=== PATIENT | female | born 1950 | race African-American/Black ===

== ENCOUNTER 2017-11-10 19:01 | Emergency (ER) | payer MEDICARE, MEDICAID ==
[~2017-11-10] VITALS: Ht 162.6 cm; Wt 88.0 kg
[~2017-11-10 19:01] MED LIST: ASPIRIN; CIMETIDINE; LEVOTHYROXINE; LOSARTAN; MAXZIDE
[2017-11-10] MEDS ORDERED: KETOROLAC 60MG/2ML VIAL IM ONE (20:45)
[2017-11-10 23:05] VITALS: BP 140/78
== END 2017-11-10 23:40 | disposition home or self-care (01) ==
LOC: ER 20:14
DX: M79.671 Pain in right foot (principal); I10 Essential (primary) hypertension; Z79.82 Long term (current) use of aspirin
CPT/HCPCS: 73630; 96372; 99284; J1885; 90471

== ENCOUNTER 2018-01-28 13:24 | Inpatient (IN) | payer MEDICARE, MEDICAID ==
[~2018-01-28] VITALS: Ht 5 cm; Wt 3.0 kg
[2018-01-28] MEDS ORDERED: FURO40TA5 PO (13:32)
[2018-01-28] MEDS ORDERED: SPIR25TA6 PO (13:32)
[2018-01-28] MEDS ORDERED: LOSA100T14 PO (13:32)
[2018-01-28] MEDS ORDERED: AMLO10TA80 PO (13:32)
[2018-01-28] MEDS ORDERED: OMEP20CA10 PO (13:32)
[2018-01-28] MEDS ORDERED: LEVO50TA8 PO (13:32)
[2018-01-28] MEDS ORDERED: DILTIAZEM HCL 5MG/ML 5ML VIAL IV ONE ×2 (14:00→17:30)
[2018-01-28] MEDS ORDERED: ASPIRIN 81MG TABLET PO ONE (14:00)
[2018-01-28] MEDS: NITROGLYCERIN 0.4MG TABLET SL SL PRN ×3 (14:08→14:50)
[2018-01-28 14:27] LABS: HEMATOCRIT. 36.3 % (36.0-48.0); HEMOGLOBIN. 12.1 g/dL (12.0-16.0); MEAN CORPUSCULAR VOLUME 78.2 fL (81.0-99.0); MEAN PLATELET VOLUME 10.1 fl (7.4-10.4); PLATELET 282 x1000/uL (130-400); RED BLOOD CELL COUNT 4.64 mill/uL (4.2-5.4); RED CELL DISTRIBUTION WIDTH 15.3 % (11.6-14.6)
[2018-01-28 14:37] LABS: D-DIMER 1.06 mg/L FEU (<0.50); PARTIAL THROMBOPLASTIN TIME 28.7 sec (23.4-31.0); PROTHROMBIN TIME 9.7 sec (9.1-11.1)
[2018-01-28 14:39] LABS: CHLORIDE 109 mEq/L (98-107)
[2018-01-28] MEDS ORDERED: MORPHINE SULFATE 4 MG/ML CPJ (NOT FOR IM USE) IV STA (14:59)
[2018-01-28] MEDS ORDERED: ONDANSETRON HCL 4MG/2ML INJ IV STA (14:59)
[2018-01-28] MEDS ORDERED: DILTIAZEM HCL 60MG TABLET PO ONE (15:00)
[2018-01-28 15:54] LABS: PLATELET ESTIMATE NORMAL
[2018-01-28] MEDS ORDERED: ENOXAPARIN 40MG/0.4ML SYR SUBCUT SCH (17:30)
[2018-01-28 18:28] LABS: T4 FREE 1.5 ng/dL (0.76-1.46)
[2018-01-28 19:10] VITALS: BP 120/57
[2018-01-28 20:00] VITALS: BP 131/62
[2018-01-28] MEDS ORDERED: ONDANSETRON HCL 4MG/2ML INJ IV PRN (20:00)
[2018-01-28] MEDS ORDERED: NITROGLYCERIN 0.4MG TABLET SL SL PRN (20:00)
[2018-01-28] MEDS ORDERED: GUAIFENESIN 200MG/10ML SUGAR FREE UDC PO PRN (20:00)
[2018-01-28] MEDS ORDERED: CLONIDINE 0.1MG TABLET PO PRN (20:00)
[2018-01-28] MEDS ORDERED: DOCUSATE SODIUM 100MG CAPSULE PO PRN (20:00)
[2018-01-28] MEDS ORDERED: TRAMADOL 50MG TABLET PO PRN (20:00)
[2018-01-28] MEDS ORDERED: LORAZEPAM 0.5MG TABLET PO PRN (20:00)
[2018-01-28] MEDS ORDERED: DIPHENHYDRAMINE 50MG/ML VIAL IV PRN (20:00)
[2018-01-28] MEDS ORDERED: NA PHOS,M-B/NA PHOS,DI-BA ENEMA 118ML PR PRN (20:00)
[2018-01-28] MEDS ORDERED: IPRATROPIUM/ALBUTEROL 0.5-3(2.5)MG/3ML NEB INH PRN (20:00)
[2018-01-28] MEDS ORDERED: ACETAMINOPHEN 325MG TABLET PO PRN (20:00)
[2018-01-28] MEDS ORDERED: MAGNESIUM/ALUMINUM HYDROXIDE/SIMETHICONE 30ML UDC PO PRN (20:00)
[2018-01-28] MEDS: MORPHINE SULFATE 4 MG/ML CPJ (NOT FOR IM USE) IV PRN (20:18)
[2018-01-28] MEDS: DILTIAZEM HCL 60MG TABLET PO SCH (20:53)
[2018-01-28] MEDS: FAMOTIDINE 20MG TABLET PO SCH (20:53)
[2018-01-28] MEDS: ASCORBIC ACID 500 MG TABLET PO SCH (20:54)
[2018-01-28] MEDS: ENOXAPARIN 100MG/ML SYR SUBCUT SCH (20:56)
[2018-01-28] MEDS ORDERED: FAMOTIDINE 20MG TABLET PO SCH (21:00)
[2018-01-29 00:27] VITALS: BP 106/33
[2018-01-29] MEDS: DILTIAZEM HCL 60MG TABLET PO SCH ×2 (01:28→08:47)
[2018-01-29 01:38] LABS: CREATINE KINASE MB FRACTION 1.7 ng/mL (0.5-3.6)
[2018-01-29 04:00] VITALS: BP 130/48
[2018-01-29 08:24] LABS: CREATINE KINASE MB FRACTION 1.4 ng/mL (0.5-3.6)
[2018-01-29] MEDS: FOLIC ACID/VITAMIN B COMP W-C TABLET PO SCH (08:46)
[2018-01-29] MEDS: ASCORBIC ACID 500 MG TABLET PO SCH ×2 (08:46→20:43)
[2018-01-29] MEDS: ASPIRIN 325MG EC TABLET PO SCH (08:46)
[2018-01-29 10:20] LABS: *AMPHETAMINES SCREEN URINE NEGATIVE (NEGATIVE); *BARBITURATES SCREEN URINE NEGATIVE (NEGATIVE)
[2018-01-29 10:21] LABS: *COCAINE SCREEN URINE NEGATIVE (NEGATIVE); METHADONE URINE SCREEN NEGATIVE (NEGATIVE); OPIATES URINE SCREEN PRESUMTIVE POSITIVE (NEGATIVE)
[2018-01-29 10:22] LABS: CANNABINOID URINE SCREEN NEGATIVE (NEGATIVE); PHENCYCLIDINE URINE SCREEN NEGATIVE (NEGATIVE)
[2018-01-29 10:30] LABS: *BENZODIAZEPINES SCREEN URINE NEGATIVE (NEGATIVE)
[2018-01-29 12:00] VITALS: BP 128/59
[2018-01-29] MEDS ORDERED: PNEUMOCOCCAL 23-VAL P-SAC VAC 0.5 ML IM ONE (12:00)
[2018-01-29] MEDS ORDERED: REGADENOSON 0.4 MG/5 ML IV ONE (13:15)
[2018-01-29] MEDS: DILTIAZEM HCL 120MG CAPSULE CD 24HR PO SCH (14:52)
[2018-01-29] MEDS ORDERED: DILTIAZEM HCL 180MG CAPSULE CD 24HR PO SCH (15:00)
[2018-01-29 16:00] VITALS: BP 131/47
[2018-01-29 17:30] LABS: BASOPHILS % 0.6 % (0.0-2.0); EOSINOPHILS % 3.3 % (0.0-5.0); HEMATOCRIT. 32.6 % (36.0-48.0); HEMOGLOBIN. 10.7 g/dL (12.0-16.0); LYMPHOCYTES % 26.1 % (20.0-50.0); MEAN CORPUSCULAR HEMOGLOBIN 25.9 pg (28.0-32.0); MEAN PLATELET VOLUME 9.9 fl (7.4-10.4); MONOCYTES % 11.1 % (2.0-8.0); NEUTROPHILS % 58.9 % (40.0-76.0); PLATELET 258 x1000/uL (130-400); RED BLOOD CELL COUNT 4.13 mill/uL (4.2-5.4); RED CELL DISTRIBUTION WIDTH 15.5 % (11.6-14.6)
[2018-01-29 18:05] LABS: CHLORIDE 108 mEq/L (98-107)
[2018-01-29 20:00] VITALS: BP 130/54
[2018-01-29] MEDS: ZOLPIDEM TARTRATE 5MG TABLET PO PRN (20:43)
[2018-01-29] MEDS: ATORVASTATIN CALCIUM 20MG TABLET PO SCH (20:43)
[2018-01-29] MEDS: FAMOTIDINE 20MG TABLET PO SCH (20:46)
[2018-01-29] MEDS: ENOXAPARIN 100MG/ML SYR SUBCUT SCH (20:47)
[2018-01-30] VITALS: BP 130/54
[2018-01-30] MEDS: MORPHINE SULFATE 4 MG/ML CPJ (NOT FOR IM USE) IV PRN (00:02)
[2018-01-30 04:00] VITALS: BP 130/54
[2018-01-30] MEDS: DILTIAZEM HCL 120MG CAPSULE CD 24HR PO SCH ×2 (05:50→18:36)
[2018-01-30 07:25] LABS: BASOPHILS % 0.6 % (0.0-2.0); EOSINOPHILS % 4.2 % (0.0-5.0); HEMOGLOBIN. 10.6 g/dL (12.0-16.0); MEAN CORPUSCULAR HEMOGLOBIN 26.1 pg (28.0-32.0); MEAN CORPUSCULAR VOLUME 78.6 fL (81.0-99.0); MEAN PLATELET VOLUME 10.3 fl (7.4-10.4); NEUTROPHILS % 55.2 % (40.0-76.0); PLATELET 256 x1000/uL (130-400); RED BLOOD CELL COUNT 4.08 mill/uL (4.2-5.4)
[2018-01-30 07:30] LABS: CHLORIDE 110 mEq/L (98-107)
[2018-01-30] MEDS ORDERED: REGADENOSON 0.4 MG/5 ML IV ONE (09:30)
[2018-01-30 12:00] VITALS: BP 135/50
[2018-01-30] MEDS: ASCORBIC ACID 500 MG TABLET PO SCH ×2 (12:51→21:05)
[2018-01-30] MEDS: FOLIC ACID/VITAMIN B COMP W-C TABLET PO SCH (12:52)
[2018-01-30] MEDS: ASPIRIN 325MG EC TABLET PO SCH (12:52)
[2018-01-30 16:00] VITALS: BP 146/60
[2018-01-30 20:00] VITALS: BP 138/65
[2018-01-30 21:00] VITALS: BP 134/48
[2018-01-30] MEDS: ENOXAPARIN 100MG/ML SYR SUBCUT SCH (21:04)
[2018-01-30] MEDS: ZOLPIDEM TARTRATE 5MG TABLET PO PRN (21:05)
[2018-01-30] MEDS: ATORVASTATIN CALCIUM 20MG TABLET PO SCH (21:05)
[2018-01-30] MEDS: FAMOTIDINE 20MG TABLET PO SCH (21:08)
[2018-01-31] VITALS: BP 135/58
[2018-01-31 04:00] VITALS: BP 130/52
[2018-01-31] MEDS: DILTIAZEM HCL 120MG CAPSULE CD 24HR PO SCH (05:07)
[2018-01-31 06:00] VITALS: BP 146/59
[2018-01-31 08:00] VITALS: BP 146/62
[2018-01-31] MEDS: ASPIRIN 325MG EC TABLET PO SCH (09:11)
[2018-01-31] MEDS: ASCORBIC ACID 500 MG TABLET PO SCH (09:11)
[2018-01-31] MEDS: FOLIC ACID/VITAMIN B COMP W-C TABLET PO SCH (09:11)
[2018-01-31 12:00] VITALS: BP 158/51
[2018-01-31 12:30] VITALS: BP 146/59
== END 2018-01-31 12:55 | disposition home health service (06) | DRG 308 ==
LOC: ER 13:24 → ENRESERV 17:13 → SUPCPDRO 17:20 → 7WST 18:09
PROVIDERS: ADMIT Internal Medicine; ATTEND Internal Medicine
DX: I48.91 Unspecified atrial fibrillation (principal); N17.0 Acute kidney failure with tubular necrosis; E44.1 Mild protein-calorie malnutrition; I13.0 Hypertensive heart and chronic kidney disease with heart failure and stage 1 through stage 4 chronic kidney disease, or unspecified chronic kidney disease; Z68.45 Body mass index [BMI] 70 or greater, adult; E66.9 Obesity, unspecified; K21.9 Gastro-esophageal reflux disease without esophagitis; I50.9 Heart failure, unspecified; E03.9 Hypothyroidism, unspecified; E78.00 Pure hypercholesterolemia, unspecified; N18.9 Chronic kidney disease, unspecified; D72.829 Elevated white blood cell count, unspecified; E05.90 Thyrotoxicosis, unspecified without thyrotoxic crisis or storm; R07.89 Other chest pain; Z79.899 Other long term (current) drug therapy; Z82.49 Family history of ischemic heart disease and other diseases of the circulatory system; Z79.82 Long term (current) use of aspirin
CPT/HCPCS: 36415; 71045; 76770; 78452; 78582; 80053; 80061; 80305; 82550; 82553; 83036; 83735; 83880; 84439; 84443; 84481; 84484; 85025; 85379; 85610; 85730; 90732; 93005; 93017; 93306; 93970; 96374; 97162; 99291; A9500; A9558; J1650; J2270; J2405; J2785; J3490

== ENCOUNTER 2018-08-18 00:11 | Inpatient (IN) | payer MEDICARE, MEDICAID ==
[~2018-08-18] VITALS: Ht 162.6 cm; Wt 95.9 kg
[~2018-08-18 00:11] MED LIST changes: +AMLO10TA80 PO; -ASPIRIN; -CIMETIDINE; +FURO40TA5 PO; -LEVOTHYROXINE; +LOSA100T32 PO; -LOSARTAN; -MAXZIDE; +OMEP20CA5 PO; +SPIR25TA6 PO
[2018-08-18] MEDS ORDERED: ONDANSETRON HCL 4MG/2ML INJ IV STA (01:07)
[2018-08-18] MEDS ORDERED: SODIUM CHLORIDE 0.9% 1,000 ML IV ONE (01:07)
[2018-08-18] MEDS ORDERED: ASPIRIN 325MG TABLET PO ONE (01:15)
[2018-08-18 01:20] LABS: BASOPHILS % 1.2 % (0.0-2.0); EOSINOPHILS % 0.4 % (0.0-5.0); HEMOGLOBIN. 12.2 g/dL (12.0-16.0); LYMPHOCYTES % 18.3 % (20.0-50.0); MEAN CORPUSCULAR HEMOGLOBIN 25.6 pg (28.0-32.0); MEAN CORPUSCULAR VOLUME 77.3 fL (81.0-99.0); MONOCYTES % 7.4 % (2.0-8.0); NEUTROPHILS % 72.7 % (40.0-76.0); PLATELET 252 x1000/uL (130-400); RED BLOOD CELL COUNT 4.78 mill/uL (4.2-5.4); RED CELL DISTRIBUTION WIDTH 15.2 % (11.6-14.6)
[2018-08-18 01:26] LABS: CHLORIDE 108 mEq/L (98-107)
[2018-08-18] MEDS ORDERED: ASPIRIN 81MG TABLET PO NR (01:45)
[2018-08-18 08:46] LABS: T4 FREE 1.15 ng/dL (0.76-1.46)
[2018-08-18] MEDS ORDERED: CLONIDINE 0.1MG TABLET PO PRN (09:00)
[2018-08-18] MEDS ORDERED: GUAIFENESIN 200MG/10ML SUGAR FREE UDC PO PRN (09:00)
[2018-08-18] MEDS ORDERED: IPRATROPIUM/ALBUTEROL 0.5-3(2.5)MG/3ML NEB INH PRN (09:00)
[2018-08-18] MEDS ORDERED: ACETAMINOPHEN 650MG SUPP PR PRN (09:00)
[2018-08-18] MEDS ORDERED: NA PHOS,M-B/NA PHOS,DI-BA ENEMA 118ML PR PRN (09:00)
[2018-08-18] MEDS ORDERED: ACETAMINOPHEN 650MG/20.3ML UDC GT PRN (09:00)
[2018-08-18] MEDS ORDERED: DIPHENHYDRAMINE 50MG/ML VIAL IV PRN (09:00)
[2018-08-18] MEDS ORDERED: HYDROCODONE/ACETAMINOPHEN 5/325MG TABLET PO PRN (09:00)
[2018-08-18] MEDS ORDERED: DOCUSATE SODIUM 100MG CAPSULE PO PRN (09:00)
[2018-08-18] MEDS ORDERED: ACETAMINOPHEN 325MG TABLET PO PRN (09:00)
[2018-08-18] MEDS ORDERED: ONDANSETRON HCL 4MG/2ML INJ IV PRN (09:00)
[2018-08-18 09:15] VITALS: BP 153/84
[2018-08-18 09:20] VITALS: BP 158/54
[2018-08-18] MEDS ORDERED: REGADENOSON 0.4 MG/5 ML IV SCH (11:45)
[2018-08-18 12:00] VITALS: BP 142/45
[2018-08-18] MEDS: APIXABAN 5 MG TABLET PO SCH ×2 (14:27→21:01)
[2018-08-18] MEDS: SODIUM CHLORIDE 0.9% INJ 3ML FLUSH IVF SCH ×2 (14:27→21:02)
[2018-08-18 15:54] LABS: CREATINE KINASE 58 IU/L (26-192)
[2018-08-18 15:55] LABS: CREATINE KINASE MB FRACTION < 1.0 ng/mL (0.5-3.6)
[2018-08-18 16:00] VITALS: BP 144/88
[2018-08-18 16:26] LABS: CLARITY URINE CLEAR (CLEAR); COLOR URINE YELLOW (YELLOW); KETONES URINE NEGATIVE (NEGATIVE); LEUKOCYTE ESTERASE URINE NEGATIVE (NEGATIVE); NITRITE URINE NEGATIVE (NEGATIVE); OCCULT BLOOD URINE NEGATIVE (NEGATIVE); PROTEIN URINE NEGATIVE (NEGATIVE); SPECIFIC GRAVITY URINE 1.012 (1.005-1.030); UROBILINOGEN URINE 0.2 E.U./dL (0.2-1.0)
[2018-08-18 16:36] LABS: *BARBITURATES SCREEN URINE NEGATIVE (NEGATIVE); *BENZODIAZEPINES SCREEN URINE NEGATIVE (NEGATIVE); *COCAINE SCREEN URINE NEGATIVE (NEGATIVE)
[2018-08-18 16:37] LABS: *AMPHETAMINES SCREEN URINE NEGATIVE (NEGATIVE); CANNABINOID URINE SCREEN NEGATIVE (NEGATIVE); METHADONE URINE SCREEN NEGATIVE (NEGATIVE); OPIATES URINE SCREEN NEGATIVE (NEGATIVE); PHENCYCLIDINE URINE SCREEN NEGATIVE (NEGATIVE)
[2018-08-18] MEDS ORDERED: APIXABAN 2.5 MG TABLET PO SCH (17:00)
[2018-08-18] MEDS: OMEPRAZOLE 20MG CAPSULE EXTENDED RELEASE PO SCH (18:29)
[2018-08-18] MEDS: AMLODIPINE 10MG TABLET PO SCH (18:30)
[2018-08-18] MEDS: SODIUM CHLORIDE 0.9% 1,000 ML IV SCH (18:30)
[2018-08-18 20:00] VITALS: BP 151/47
[2018-08-18] MEDS ORDERED: MEDICATION NOT ON FORMULARY EA (Losartan Potassium 100 MG) PO SCH (21:00)
[2018-08-18] MEDS: MAGNESIUM/ALUMINUM HYDROXIDE/SIMETHICONE 30ML UDC PO PRN (21:02)
[2018-08-18] MEDS: FUROSEMIDE 40MG TABLET PO SCH (21:02)
[2018-08-18] MEDS: LOSARTAN POTASSIUM 100 MG TABLET PO SCH (21:02)
[2018-08-18 23:54] LABS: CREATINE KINASE MB FRACTION 1.1 ng/mL (0.5-3.6)
[2018-08-19 00:45] VITALS: BP 138/43
[2018-08-19 04:00] VITALS: BP 131/44
[2018-08-19] MEDS: SODIUM CHLORIDE 0.9% INJ 3ML FLUSH IVF SCH ×3 (06:21→20:52)
[2018-08-19] MEDS: SODIUM CHLORIDE 0.9% 1,000 ML IV SCH ×2 (06:49→20:57)
[2018-08-19 07:19] LABS: BASOPHILS % 1.2 % (0.0-2.0); EOSINOPHILS % 3.2 % (0.0-5.0); HEMATOCRIT. 31.2 % (36.0-48.0); HEMOGLOBIN. 10.2 g/dL (12.0-16.0); LYMPHOCYTES % 23.8 % (20.0-50.0); MEAN CORPUSCULAR HEMOGLOBIN 25.7 pg (28.0-32.0); MEAN CORPUSCULAR VOLUME 78.4 fL (81.0-99.0); MEAN PLATELET VOLUME 10.6 fl (7.4-10.4); NEUTROPHILS % 63.8 % (40.0-76.0); PLATELET 214 x1000/uL (130-400); RED BLOOD CELL COUNT 3.97 mill/uL (4.2-5.4); RED CELL DISTRIBUTION WIDTH 15.1 % (11.6-14.6)
[2018-08-19 07:41] LABS: CHLORIDE 114 mEq/L (98-107)
[2018-08-19 07:55] LABS: LDL CHOLESTEROL 84 mg/dL (5-100)
[2018-08-19 07:57] LABS: CREATINE KINASE 61 IU/L (26-192); HDL CHOLESTEROL 64 mg/dL (40-59)
[2018-08-19 07:59] LABS: CREATINE KINASE MB FRACTION 1.2 ng/mL (0.5-3.6)
[2018-08-19 08:00] VITALS: BP 150/48
[2018-08-19] MEDS: OMEPRAZOLE 20MG CAPSULE EXTENDED RELEASE PO SCH (08:47)
[2018-08-19] MEDS: FUROSEMIDE 40MG TABLET PO SCH ×2 (08:47→20:51)
[2018-08-19] MEDS: APIXABAN 5 MG TABLET PO SCH ×2 (08:47→20:51)
[2018-08-19] MEDS: AMLODIPINE 10MG TABLET PO SCH (08:48)
[2018-08-19] MEDS: SPIRONOLACTONE 25MG TABLET PO SCH (08:48)
[2018-08-19] MEDS ORDERED: MEDICATION NOT ON FORMULARY EA (Spironolactone 25 MG) PO SCH (09:00)
[2018-08-19] MEDS ORDERED: MEDICATION NOT ON FORMULARY EA (Furosemide 40 MG) PO SCH (09:00)
[2018-08-19 12:00] VITALS: BP 118/38
[2018-08-19 16:00] VITALS: BP 132/46
[2018-08-19 20:00] VITALS: BP 140/42
[2018-08-19] MEDS: LOSARTAN POTASSIUM 100 MG TABLET PO SCH (20:51)
[2018-08-19] MEDS: MAGNESIUM/ALUMINUM HYDROXIDE/SIMETHICONE 30ML UDC PO PRN (20:51)
[2018-08-20] VITALS: BP 140/52
[2018-08-20 04:00] VITALS: BP 101/56
[2018-08-20] MEDS: SODIUM CHLORIDE 0.9% INJ 3ML FLUSH IVF SCH ×2 (05:44→14:00)
[2018-08-20 07:42] VITALS: BP 151/51
[2018-08-20] MEDS: FUROSEMIDE 40MG TABLET PO SCH (08:45)
[2018-08-20] MEDS: OMEPRAZOLE 20MG CAPSULE EXTENDED RELEASE PO SCH (08:45)
[2018-08-20] MEDS: AMLODIPINE 10MG TABLET PO SCH (08:45)
[2018-08-20] MEDS: APIXABAN 5 MG TABLET PO SCH (08:45)
[2018-08-20] MEDS: SPIRONOLACTONE 25MG TABLET PO SCH (08:45)
[2018-08-20] MEDS: SODIUM CHLORIDE 0.9% 1,000 ML IV SCH (08:48)
[2018-08-20] MEDS ORDERED: REGADENOSON 0.4 MG/5 ML IV ONE (10:35)
[2018-08-20 11:56] VITALS: BP 155/50
[2018-08-20 13:23] LABS: BASOPHILS % 1.5 % (0.0-2.0); HEMATOCRIT. 33.6 % (36.0-48.0); HEMOGLOBIN. 11.1 g/dL (12.0-16.0); LYMPHOCYTES % 8.9 % (20.0-50.0); MEAN CORPUSCULAR HEMOGLOBIN 25.8 pg (28.0-32.0); MEAN CORPUSCULAR VOLUME 78.4 fL (81.0-99.0); MEAN PLATELET VOLUME 10.3 fl (7.4-10.4); MONOCYTES % 7.9 % (2.0-8.0); NEUTROPHILS % 79.7 % (40.0-76.0); PLATELET 215 x1000/uL (130-400); RED BLOOD CELL COUNT 4.28 mill/uL (4.2-5.4); RED CELL DISTRIBUTION WIDTH 14.9 % (11.6-14.6)
[2018-08-20 13:30] LABS: CHLORIDE 115 mEq/L (98-107)
[2018-08-20 15:10] VITALS: BP 150/51
[2018-08-20] MEDS ORDERED: APIX5TAB PO (15:15)
[2018-08-20] MEDS ORDERED: DIGO125T82 MT (15:39)
[2018-08-20] MEDS ORDERED: DILT120C94 PO (15:54)
[2018-08-20] MEDS ORDERED: DILT120C94 MT (19:32)
[2018-08-20 19:57] VITALS: BP 149/49
== END 2018-08-20 21:45 | disposition home or self-care (01) | DRG 308 ==
LOC: ER 00:11 → 6WST 03:07 → EDBEDREQTM 03:34 → EDBEDREQ 03:34 → ENRESERV 07:16
PROVIDERS: ADMIT Family Medicine; ATTEND Family Medicine
DX: I48.91 Unspecified atrial fibrillation (principal); N17.0 Acute kidney failure with tubular necrosis; E44.1 Mild protein-calorie malnutrition; N18.4 Chronic kidney disease, stage 4 (severe); E11.22 Type 2 diabetes mellitus with diabetic chronic kidney disease; E78.5 Hyperlipidemia, unspecified; E03.9 Hypothyroidism, unspecified; I12.9 Hypertensive chronic kidney disease with stage 1 through stage 4 chronic kidney disease, or unspecified chronic kidney disease; K21.9 Gastro-esophageal reflux disease without esophagitis; Z79.01 Long term (current) use of anticoagulants; Z82.49 Family history of ischemic heart disease and other diseases of the circulatory system; Z79.899 Other long term (current) drug therapy; Z79.82 Long term (current) use of aspirin; Z68.36 Body mass index [BMI] 36.0-36.9, adult
CPT/HCPCS: 36415; 71045; 76770; 78452; 80061; 80305; 82550; 82553; 83036; 83880; 84439; 84443; 84484; 85379; 93005; 93017; 93308; 93970; 96361; 96374; 99285; A9500; J2405; J2785; J7030

== ENCOUNTER 2023-02-27 08:17 | Emergency (ER) | payer OTHER, MEDICAID ==
[~2023-02-27] VITALS: Ht 165.1 cm; Wt 80.0 kg
[~2023-02-27 08:17] MED LIST changes: +APIX5TAB PO; +DIGO125T80 MT; -LOSA100T32 PO; +LOSA100T33 PO; +OMEP20CA14 PO; -OMEP20CA5 PO
[2023-02-27] MEDS ORDERED: LABETALOL (08:21)
[2023-02-27] MEDS ORDERED: LIPITOR (08:21)
[2023-02-27 08:22] VITALS: TEMP 98.2; O2SAT 100
[2023-02-27 09:04] LABS: BASOPHILS % 1.2 % (0.0-2.0); EOSINOPHILS % 3.1 % (0.0-5.0); HEMATOCRIT. 32.8 % (36.0-48.0); HEMOGLOBIN. 10.5 g/dL (12.0-16.0); LYMPHOCYTES % 19.6 % (20.0-50.0); MEAN CORPUSCULAR HEMOGLOBIN 26.3 pg (28.0-32.0); MEAN CORPUSCULAR VOLUME 82.2 fL (81.0-99.0); MEAN PLATELET VOLUME 10.5 fl (7.4-10.4); MONOCYTES % 7.9 % (2.0-8.0); NEUTROPHILS % 68.2 % (40.0-76.0); PLATELET 187 x1000/uL (130-400); RED BLOOD CELL COUNT 3.99 mill/uL (4.2-5.4); WHITE BLOOD COUNT 9.2 x1000/uL (4.5-11.0)
[2023-02-27 09:21] LABS: CHLORIDE 108 mEq/L (98-107); INDEX HEMOLYSI 1 (1-3); INDEX ICTERIC 1 (1-4); INDEX LIPEMIC 1 (1-3); POTASSIUM 4.5 mEq/L (3.5-5.1); SODIUM 140 mEq/L (136-145)
[2023-02-27 09:48] LABS: ALANINE AMINOTRANSFERASE 15 IU/L (13-61); ALBUMIN 3.6 g/dL (3.4-5.0); ASPARTATE AMINOTRANSFERASE 18 IU/L (15-37); BILIRUBIN TOTAL 0.7 mg/dL (0.1-1.0); CALCIUM 8.4 mg/dL (8.5-10.1); CARBON DIOXIDE 23 mEq/L (21-32); GLUCOSE 111 mg/dL (70-105); TROPONIN I HIGH SENSITIVITY 31 ng/L (<54); UREA NITROGEN BLOOD 45 mg/dL (7-21)
[2023-02-27 09:52] LABS: CREATININE 6.8 mg/dL (0.6-1.3)
[2023-02-27] MEDS ORDERED: FUROSEMIDE 40MG/4ML VIAL IVP ONE (10:00)
[2023-02-27] MEDS ORDERED: ENALAPRIL 2.5MG/2ML VIAL 2ML IV ONE (10:00)
[2023-02-27] MEDS ORDERED: FUROSEMIDE 40MG/4ML VIAL IVP NR (10:15)
[2023-02-27] MEDS ORDERED: ENALAPRIL 1.25MG/ML VIAL 1ML IV NR (10:15)
[2023-02-27 11:46] LABS: NT PRO B-TYPE NATRIURETIC PEP 12817 pg/mL (5-125)
[2023-02-27 12:23] LABS: HEPATITIS B SURFACE ANTIGEN NEGATIVE
[2023-02-27 12:35] VITALS: BP 154/56; PULSE 87; RESP 26
[2023-02-27 12:50] LABS: HEPATITIS C VIR.AB 0.08 INDEXVAL (0.00-0.80)
[2023-02-27 12:51] LABS: HEPATITIS B CORE AB IGM NEGATIVE
[2023-02-27 12:53] LABS: HEPATITIS A AB IGM NEGATIVE (NEGATIVE)
== END 2023-02-27 12:37 | disposition short-term general hospital (02) ==
LOC: ER 08:17
DX: E87.70 Fluid overload, unspecified (principal); I12.0 Hypertensive chronic kidney disease with stage 5 chronic kidney disease or end stage renal disease; N18.6 End stage renal disease; I10 Essential (primary) hypertension; Z98.890 Other specified postprocedural states
CPT/HCPCS: 99285; 96374; 71045; 96375; 80053; 83880; 85025; 87340; 86803; 84484; 36415; 86705; 86709; 93005; J3490; J1940

== ENCOUNTER 2024-09-02 03:24 | Inpatient (IN) | payer OTHER, MEDICAID, MEDICARE ==
[2024-09-02] VITALS (73 sets, daily range): BP systolic 80–152; BP diastolic 44–112; PULSE 58–148; RESP 11–31; TEMP 36.1–36.6696; O2SAT 96–100
[~2024-09-02] VITALS: Ht 165.1 cm; Wt 68.9 kg
[2024-09-02] MEDS: HEPARIN 25,000 UNITS PREMIX 250 ML IV SCH (03:16)
[~2024-09-02 03:24] MED LIST changes: +LABETALOL; +LIPITOR
[2024-09-02] MEDS: PROPOFOL 10MG/ML 100ML 100 ML IV ONE (04:27)
[2024-09-02 04:30] LABS: BG BASE EXCESS -5.3 mmol/L (-2.0-3.0); BG CARBOXYHEMOGLOBIN 1.2 % (0.5-1.5); BG DEOXYHEMOGLOBIN 0.7 % (0.0-5.0); BG FRACTION INSPIRED OXYGEN 100; BG HCO3 ACT 21.7 mmol/L (21.0-28.0); BG METHEMOGLOBIN 0.3 % (0.5-1.5); BG OXYGEN SATURATION 99.3 % (94.0-98.0); BG OXYHEMOGLOBIN 97.8 % (94.0-98.0); BG PCO2 48.7 mmHg (32.0-45.0); BG PH 7.266 (7.350-7.450); BG PO2 296.8 mmHg (83.0-108.0); BG SAMPLE SITE RIGHT RADIAL; BG TOTAL HEMOGLOBIN 10.3 g/dL (12.0-16.0); BG VENT MODE VENT - AC
[2024-09-02] MEDS: INSULIN REGULAR (HUMULIN R) 1000UNITS/10ML VIAL IV ONE (05:04)
[2024-09-02] MEDS: METOPROLOL TARTRATE 5MG/5ML VIAL IV ONE (05:11)
[2024-09-02] MEDS: METOPROLOL TARTRATE 5MG/5ML VIAL IV NR (05:47)
[2024-09-02 05:52] LABS: BASOPHILS % 0.6 % (0.0-2.0); EOSINOPHILS % 0.9 % (0.0-5.0); HEMATOCRIT. 32.4 % (36.0-48.0); HEMOGLOBIN. 10.6 g/dL (12.0-16.0); LYMPHOCYTES % 8.3 % (20.0-50.0); MEAN CORPUSCULAR HEMOGLOBIN 27.9 pg (28.0-32.0); MEAN CORPUSCULAR HGB CONC 32.7 g/dL (31.0-37.0); MEAN CORPUSCULAR VOLUME 85.5 fL (81.0-99.0); MONOCYTES % 2.2 % (2.0-8.0); PLATELET 253 x1000/uL (130-400); RED BLOOD CELL COUNT 3.79 mill/uL (4.2-5.4); WHITE BLOOD COUNT 19.1 x1000/uL (4.5-11.0)
[2024-09-02] MEDS: DILTIAZEM HCL 5MG/ML 5ML VIAL IV ONE (05:57)
[2024-09-02 06:01] LABS: INR 1.1; PARTIAL THROMBOPLASTIN TIME 28.8 sec (23.4-31.0); PROTHROMBIN TIME 11.9 sec (9.6-11.0)
[2024-09-02 06:06] LABS: CHLORIDE 101 mEq/L (98-107); SODIUM 141 mEq/L (136-145)
[2024-09-02 06:07] LABS: CALCIUM 10.9 mg/dL (8.7-10.4); CARBON DIOXIDE 28 mEq/L (21-32)
[2024-09-02] MEDS: PIPERACILLIN/TAZO 3.375G/50ML 50 ML IV NR (06:08)
[2024-09-02 06:12] LABS: GLUCOSE 194 mg/dL (70-105); UREA NITROGEN BLOOD 51 mg/dL (9-23)
[2024-09-02 06:13] LABS: ETHANOL BLOOD < 10 mg/dL (<10)
[2024-09-02 06:14] LABS: PHOSPHORUS 5.1 mg/dL (2.5-4.9)
[2024-09-02 06:58] LABS: CREATININE 7.4 mg/dL (0.6-1.0); TROPONIN I HIGH SENSITIVITY 190 ng/L (3.0-34)
[2024-09-02] MEDS: VANCOMYCIN 1G PREMIX 200 ML IV NR (07:25)
[2024-09-02 07:32] LABS: LACTIC ACID 2.8 mmol/L (0.4-2.0)
[2024-09-02 08:39] LABS: TROPONIN I HIGH SENSITIVITY 586 ng/L (3.0-34)
[2024-09-02] MEDS ORDERED: ENOXAPARIN 40MG/0.4ML SYR SUBCUT SCH (09:00)
[2024-09-02] MEDS ORDERED: ONDANSETRON HCL 4MG/2ML INJ IV PRN (09:30)
[2024-09-02] MEDS ORDERED: ACETAMINOPHEN 325MG TABLET PO PRN (09:30)
[2024-09-02] MEDS ORDERED: DILTIAZEM HCL 125 MG in DEXT 5% WATER 100 ML IV PRN (09:30)
[2024-09-02] MEDS ORDERED: DEXTROSE 50% WATER 50ML SYRINGE IV PRN (09:30)
[2024-09-02] MEDS ORDERED: MAGNESIUM/ALUMINUM HYDROXIDE/SIMETHICONE 30ML UDC PO PRN (09:30)
[2024-09-02] MEDS ORDERED: IPRATROPIUM/ALBUTEROL 0.5-3(2.5)MG/3ML NEB HHN PRN (09:30)
[2024-09-02] MEDS ORDERED: DOCUSATE SODIUM 100MG CAPSULE PO PRN (09:30)
[2024-09-02] MEDS: DILTIAZEM HCL 5MG/ML 5ML VIAL IV NR (09:40)
[2024-09-02 10:22] LABS: BG BASE EXCESS -0.8 mmol/L (-2.0-3.0); BG CARBOXYHEMOGLOBIN 0.6 % (0.5-1.5); BG DEOXYHEMOGLOBIN 0.8 % (0.0-5.0); BG FRACTION INSPIRED OXYGEN 80; BG HCO3 ACT 22.8 mmol/L (21.0-28.0); BG METHEMOGLOBIN 0.2 % (0.5-1.5); BG OXYGEN SATURATION 99.2 % (94.0-98.0); BG OXYHEMOGLOBIN 98.4 % (94.0-98.0); BG PCO2 33.6 mmHg (32.0-45.0); BG PO2 193.5 mmHg (83.0-108.0); BG SAMPLE SITE RIGHT RADIAL; BG TOTAL HEMOGLOBIN 9.4 g/dL (12.0-16.0); BG TOTAL RESPIRATORY RATE 16 b/min; BG VENT MODE VENT - AC
[2024-09-02] MEDS ORDERED: IPRATROPIUM BROMIDE (0.02%) 0.5MG/2.5ML NEB HHN PRN (10:45)
[2024-09-02] MEDS: HEPARIN 60 UNITS/KG BOLUS IV SCH (11:05)
[2024-09-02] MEDS ORDERED: AMIODARONE HCL 900 MG in DEXT 5% WATER 482 ML IV SCH (11:15)
[2024-09-02 11:17] LABS: TRIGLYCERIDE 70 mg/dL (0-150)
[2024-09-02 11:18] LABS: LDL CHOLESTEROL 42 mg/dL (5-100)
[2024-09-02 11:19] LABS: CHOLESTEROL 124 mg/dL (<200); HDL CHOLESTEROL 60 mg/dL (>65)
[2024-09-02] MEDS: FAMOTIDINE 20MG/2ML VIAL IV SCH (11:20)
[2024-09-02] MEDS: METHYLPREDNISOLONE SOD SUCC 40MG/ML (ACT-O-VIAL) IV SCH (11:20)
[2024-09-02 11:22] LABS: THYROID STIMULATING HORMONE 6.26 uIU/mL (0.55-4.78)
[2024-09-02] MEDS: AMIODARONE 150MG/100ML D5W 100 ML IV NR (11:34)
[2024-09-02] MEDS: ASPIRIN 81MG TABLET PO SCH (11:34)
[2024-09-02] MEDS: SODIUM CHLORIDE 0.9% 250 ML IV ONE (11:35)
[2024-09-02 11:37] LABS: IRON 118 ug/dL (50-170)
[2024-09-02 11:40] LABS: TOTAL IRON BINDING CAPACITY 304 ug/dl (250-425)
[2024-09-02] MEDS: PROPOFOL 10MG/ML 100ML 100 ML IV PRN (11:43)
[2024-09-02] MEDS: BLOOD SUGAR DIAGNOSTIC STRIP TEST SCH (11:48)
[2024-09-02] MEDS: INSULIN LISPRO 100 UNITS/ML SUBCUT SCH (11:48)
[2024-09-02] MEDS ORDERED: IPRATROPIUM/ALBUTEROL 0.5-3(2.5)MG/3ML NEB HHN SCH (12:00)
[2024-09-02] MEDS: DOXYCYCLINE 100MG/100ML 100 ML IV SCH (12:22)
[2024-09-02 12:28] LABS: HEPATITIS B SURFACE ANTIGEN NEGATIVE (Negative)
[2024-09-02] MEDS: AMIODARONE 360MG/200ML D5W PREMIX IV SCH (12:29)
[2024-09-02 12:48] LABS: HEPATITIS A AB IGM NEGATIVE (Negative)
[2024-09-02 12:49] LABS: HEPATITIS B CORE AB IGM NEGATIVE (Negative); HEPATITIS C AB NON REACTIVE (Neg) (Negative)
[2024-09-02] MEDS: CEFTRIAXONE 1GM/50ML 50 ML IV SCH (13:28)
[2024-09-02] MEDS ORDERED: CALCIUM CHLORIDE 1GM/10ML SYR IV ONE (14:33)
[2024-09-02] MEDS ORDERED: HEPARIN BOLUS PRN aPTT 30-44 IV (16:00)
[2024-09-02] MEDS ORDERED: HEPARIN BOLUS PRN aPTT <30 IV (17:00)
[2024-09-02] MEDS ORDERED: PIPERACILLIN/TAZO 3.375G/50ML 50 ML IV SCH (18:00)
[2024-09-02 20:18] LABS: INFLUENZA TYPE A Presumptive Negative (Pres. Neg.); INFLUENZA TYPE B Presumptive Negative (Pres. Neg.)
[2024-09-02 20:19] LABS: RESPIRATORY SYNCYTIAL VIRUS Not Detected (Not Detectd)
[2024-09-02] MEDS: ATORVASTATIN CALCIUM 40MG TABLET PO SCH (21:31)
[2024-09-03] VITALS (101 sets, daily range): BP systolic 102–147; BP diastolic 43–64; PULSE 53–84; RESP 12–25; TEMP 36.4–37.1; O2SAT 95–100
[2024-09-03 00:33] LABS: TROPONIN I HIGH SENSITIVITY 609 ng/L (3.0-34)
[2024-09-03 05:41] LABS: HEMATOCRIT 29.6 % (36.0-48.0); HEMOGLOBIN 9.9 g/dL (12.0-16.0); MEAN CORPUSCULAR HGB CONC 33.3 g/dL (31.0-37.0); MEAN CORPUSCULAR VOLUME 84.1 fL (81.0-99.0); PLATELET 228 x1000/uL (130-400); RED BLOOD CELL COUNT 3.52 mill/uL (4.2-5.4); RED CELL DISTRIBUTION WIDTH 15.4 % (11.6-14.6); WHITE BLOOD COUNT 21.6 x1000/uL (4.5-11.0)
[2024-09-03 06:00] LABS: CALCIUM 9.4 mg/dL (8.7-10.4)
[2024-09-03 06:06] LABS: CREATININE 5.6 mg/dL (0.6-1.0)
[2024-09-03 09:13] LABS: BG BASE EXCESS 2.9 mmol/L (-2.0-3.0); BG CARBOXYHEMOGLOBIN 1.2 % (0.5-1.5); BG DEOXYHEMOGLOBIN 0.9 % (0.0-5.0); BG FRACTION INSPIRED OXYGEN 35; BG HCO3 ACT 25.3 mmol/L (21.0-28.0); BG METHEMOGLOBIN 0.3 % (0.5-1.5); BG OXYGEN SATURATION 99.1 % (94.0-98.0); BG OXYHEMOGLOBIN 97.6 % (94.0-98.0); BG PCO2 30.8 mmHg (32.0-45.0); BG PH 7.533 (7.350-7.450); BG PO2 232.1 mmHg (83.0-108.0); BG SAMPLE SITE LEFT BRACHIAL; BG TOTAL HEMOGLOBIN 9.5 g/dL (12.0-16.0); BG TOTAL RESPIRATORY RATE 14 b/min; BG VENT MODE VENT - AC
[2024-09-03] MEDS: ENOXAPARIN 80MG/0.8ML SYR SUBCUT SCH (09:55)
[2024-09-03] MEDS: PIPERACILLIN/TAZO 3.375G/50ML IV SCH (12:39)
[2024-09-03] MEDS: AZITHROMYCIN 500MG/250ML 250 ML IV SCH (15:17)
[2024-09-03] MEDS: PROPOFOL 10MG/ML 100ML 100 ML IV PRN (15:18)
[2024-09-04] VITALS (77 sets, daily range): BP systolic 99–177; BP diastolic 44–113; PULSE 58–102; RESP 11–39; TEMP 36.2–37.1; O2SAT 95–100
[2024-09-04 05:43] LABS: POTASSIUM 4.2 mEq/L (3.5-5.1)
[2024-09-04 05:44] LABS: CALCIUM 8.5 mg/dL (8.7-10.4)
[2024-09-04 05:53] LABS: CREATININE 6.9 mg/dL (0.6-1.0); T4 FREE 1.16 ng/dL (0.89-1.76); THYROID STIMULATING HORMONE 0.32 uIU/mL (0.55-4.78)
[2024-09-04 06:03] LABS: HEMATOCRIT. 25.8 % (36.0-48.0); HEMOGLOBIN. 8.7 g/dL (12.0-16.0); MEAN CORPUSCULAR HEMOGLOBIN 28.1 pg (28.0-32.0); MEAN CORPUSCULAR HGB CONC 33.7 g/dL (31.0-37.0); MEAN CORPUSCULAR VOLUME 83.3 fL (81.0-99.0); MEAN PLATELET VOLUME 10.3 fl (7.4-10.4); PLATELET 219 x1000/uL (130-400); RED CELL DISTRIBUTION WIDTH 14.9 % (11.6-14.6); WHITE BLOOD COUNT 19.1 x1000/uL (4.5-11.0)
[2024-09-04 06:13] LABS: DIFFERENTIAL COMMENT 1
[2024-09-04] MEDS: AMIODARONE 200MG TABLET PO SCH (08:47)
[2024-09-04 08:59] LABS: HYPOCHROMASIA 1+; PLATELET ESTIMATE NORMAL
[2024-09-04 09:01] LABS: ANISOCYTOSIS 1+
[2024-09-04 10:40] LABS: BG BASE EXCESS 3.6 mmol/L (-2.0-3.0); BG CARBOXYHEMOGLOBIN 1.4 % (0.5-1.5); BG DEOXYHEMOGLOBIN 3.1 % (0.0-5.0); BG FRACTION INSPIRED OXYGEN 35; BG HCO3 ACT 26.6 mmol/L (21.0-28.0); BG METHEMOGLOBIN 0.3 % (0.5-1.5); BG OXYGEN SATURATION 96.8 % (94.0-98.0); BG OXYHEMOGLOBIN 95.2 % (94.0-98.0); BG PCO2 34.3 mmHg (32.0-45.0); BG PH 7.508 (7.350-7.450); BG PO2 87.8 mmHg (83.0-108.0); BG TOTAL HEMOGLOBIN 9.2 g/dL (12.0-16.0); BG VENT MODE VENT - SIMV
[2024-09-04] MEDS: CLONIDINE 0.1MG TABLET PO PRN (12:39)
[2024-09-04 14:39] LABS: BG BASE EXCESS 3.4 mmol/L (-2.0-3.0); BG CARBOXYHEMOGLOBIN 1.5 % (0.5-1.5); BG DEOXYHEMOGLOBIN 2.4 % (0.0-5.0); BG FRACTION INSPIRED OXYGEN 35; BG HCO3 ACT 26.4 mmol/L (21.0-28.0); BG METHEMOGLOBIN 0.3 % (0.5-1.5); BG OXYGEN SATURATION 97.6 % (94.0-98.0); BG OXYHEMOGLOBIN 95.8 % (94.0-98.0); BG PCO2 33.7 mmHg (32.0-45.0); BG PH 7.512 (7.350-7.450); BG PO2 101.4 mmHg (83.0-108.0); BG SAMPLE SITE RIGHT RADIAL; BG TOTAL HEMOGLOBIN 8.6 g/dL (12.0-16.0); BG VENT MODE VENT - CPAP
[2024-09-04] MEDS ORDERED: THROAT LOZENGES-BENZOCAINE/MENTH/CETYLPYRD CL LOZENGES MM PRN (16:30)
[2024-09-04] MEDS: ACETAMINOPHEN 325MG TABLET PO PRN (23:02)
[2024-09-05] VITALS (18 sets, daily range): BP systolic 114–152; BP diastolic 45–56; PULSE 56–77; RESP 16–24; TEMP 36.1–36.6; O2SAT 95–100
[2024-09-05 06:00] LABS: CALCIUM 8.6 mg/dL (8.7-10.4); POTASSIUM 4.1 mEq/L (3.5-5.1)
[2024-09-05 06:09] LABS: HEMATOCRIT. 25.5 % (36.0-48.0); HEMOGLOBIN. 8.6 g/dL (12.0-16.0); MEAN CORPUSCULAR HGB CONC 33.7 g/dL (31.0-37.0); MEAN CORPUSCULAR VOLUME 83.1 fL (81.0-99.0); MEAN PLATELET VOLUME 10.4 fl (7.4-10.4); PLATELET 222 x1000/uL (130-400); RED BLOOD CELL COUNT 3.07 mill/uL (4.2-5.4); WHITE BLOOD COUNT 15.6 x1000/uL (4.5-11.0)
[2024-09-05 06:17] LABS: CREATININE 5.8 mg/dL (0.6-1.0)
[2024-09-05] MEDS: INSULIN LISPRO 100 UNITS/ML SUBCUT SCH (06:21)
[2024-09-05] MEDS: BLOOD SUGAR DIAGNOSTIC STRIP TEST SCH (06:21)
[2024-09-05 06:22] LABS: DIFFERENTIAL COMMENT 1
[2024-09-05] MEDS ORDERED: KETOROLAC 15MG/ML VIAL IV ONE (08:00)
[2024-09-05] MEDS: LIDOCAINE 5% PATCH TOP SCH (09:42)
[2024-09-05 10:56] LABS: ANISOCYTOSIS 1+; HYPOCHROMASIA 1+; PLATELET ESTIMATE NORMAL
[2024-09-05] MEDS: METHYLPREDNISOLONE SOD SUCC 40MG/ML (ACT-O-VIAL) IV SCH (14:49)
[2024-09-05] MEDS: IPRATROPIUM/ALBUTEROL 0.5-3(2.5)MG/3ML NEB HHN SCH (16:00)
[2024-09-05] MEDS: AMLODIPINE 5MG TABLET PO NR (17:13)
[2024-09-06] MEDS ORDERED: AMLODIPINE 10MG TABLET PO SCH (09:00)
== END 2024-09-05 23:05 | disposition short-term general hospital (02) | DRG 871 ==
LOC: ER 03:24 → MICUSO 05:24 → EDBEDREQSVC 06:02 → EDBEDREQTM 06:02 → 7WST 09-05 13:08
PROVIDERS: ADMIT Internal Medicine; ATTEND Internal Medicine
PROC: 0BH17EZ Insertion of Endotracheal Airway into Trachea, Via Natural or Artificial Opening (ICD-10-PCS; principal; 2024-09-02)
PROC: 5A1945Z Respiratory Ventilation, 24-96 Consecutive Hours (ICD-10-PCS; 2024-09-02)
PROC: 5A1D70Z Performance of Urinary Filtration, Intermittent, Less than 6 Hours Per Day (ICD-10-PCS; 2024-09-02)
PROC: 3E0A3GC Introduction of Other Therapeutic Substance into Bone Marrow, Percutaneous Approach (ICD-10-PCS; 2024-09-02)
PROC: 5A12012 Performance of Cardiac Output, Single, Manual (ICD-10-PCS; 2024-09-02)
PROC: 5A1D70Z Performance of Urinary Filtration, Intermittent, Less than 6 Hours Per Day (ICD-10-PCS; 2024-09-04)
DX: A41.9 Sepsis, unspecified organism (principal); G92.9 Unspecified toxic encephalopathy; J18.9 Pneumonia, unspecified organism; N18.6 End stage renal disease; J96.01 Acute respiratory failure with hypoxia; I46.8 Cardiac arrest due to other underlying condition; R65.21 Severe sepsis with septic shock; I21.A1 Myocardial infarction type 2; E87.20 Acidosis, unspecified; I13.2 Hypertensive heart and chronic kidney disease with heart failure and with stage 5 chronic kidney disease, or end stage renal disease; I31.39 Other pericardial effusion (noninflammatory); E87.29 Other acidosis; E11.22 Type 2 diabetes mellitus with diabetic chronic kidney disease; E11.65 Type 2 diabetes mellitus with hyperglycemia; I50.9 Heart failure, unspecified; E83.39 Other disorders of phosphorus metabolism; E83.52 Hypercalcemia; E87.5 Hyperkalemia; Z99.2 Dependence on renal dialysis; I08.3 Combined rheumatic disorders of mitral, aortic and tricuspid valves; D63.1 Anemia in chronic kidney disease; I48.91 Unspecified atrial fibrillation; R00.1 Bradycardia, unspecified; E83.51 Hypocalcemia; Z79.01 Long term (current) use of anticoagulants; Z90.710 Acquired absence of both cervix and uterus; E78.00 Pure hypercholesterolemia, unspecified; E03.9 Hypothyroidism, unspecified; K21.9 Gastro-esophageal reflux disease without esophagitis; M10.9 Gout, unspecified; Z88.6 Allergy status to analgesic agent
CPT/HCPCS: 31500; 36415; 36600; 36680; 71045; 78580; 80048; 80061; 80320; 82040; 82375; 82805; 82962; 83036; 83540; 83550; 83605; 83735; 83880; 84100; 84145; 84439; 84443; 84478; 84484; 85025; 85027; 85379; 86705; 86709; 86850; 86900; 87070; 87340; 87420; 87426; 87804; 90935; 92950; 93005; 93306; 94002; 94003; 94070; 94640; 94664; 94760; 97166; 99291; J0282; J0456; J0696; J1644; J1650; J1815; J2543; J2704; J2919; J3370; J3490; G0480